=== PATIENT | male | born 1975 | race Caucasian/White ===

== ENCOUNTER → 2022-08-18 09:48 | Outpatient (CLI) | payer BC, SELFPAY ==
--- NOTE | ~2022-08-18 | XR_ITS ---
Lumbosacral Spine: AP and lateral views Clinical History: Pain Findings: The normal lordotic curve is maintained. The vertebral bodies and posterior elements are i ntact. The intervertebral disc spaces are preserved. The sacroiliac joints are normally outlined. Impression: No significant abnormality. Reviewed, dictated and finalized at [facility]. [employer] Impression: No significant abnormality.
== END ==
PROVIDERS: PCP Physician Assistant; Visit Provider Physician Assistant
DX: M62.830 Muscle spasm of back (principal)
CPT/HCPCS: 72100